=== PATIENT | female | born 1980 | race Two or more races ===

== ENCOUNTER 2016-12-06 13:21 | Emergency (ER) | payer SELFPAY ==
--- NOTE | 2016-12-06 13:56 | ED Physician Documentation ---
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 She denies suicidal or homicidal ideation. She does not have a local doctor yet.) Review of Systems Musculoskeletal: denies: Neck pain, Back pain Psychiatric: reports: Depressed. denies: Suicidal, Homicidal, Hallucinations, Delusions Endocrine: denies: Weight loss, Weight gain PD PAST MEDICAL HISTORY - Past Medical History Past Medical History: Yes Psych: Depression - Past Surgical History Past Surgical History: No - Present Medications Home Medications: Ambulatory Orders Medication Instructions Recorded Confirmed Sertraline HCl 50 mg PO DAILY 12/06/16 12/06/16 Sertraline HCl 50 mg PO DAILY #60 tablet 12/06/16 - Allergies Allergies/Adverse Reactions: Allergies Allergy/AdvReac Type Severity Reaction Status Date / Time No Known Drug Allergies Allergy Verified 12/06/16 13:36 - Social History Does the pt smoke?: No Smoking Status: Never smoker Does the pt drink ETOH?: No Does the pt have substance abuse?: No PD ED PE NORMAL - Vitals Vital signs reviewed: Yes - General General: Alert and oriented X 3, No acute distress - Derm Derm: Normal color, Warm and dry, No rash - Neuro Neuro: Alert and oriented X 3, tape transferrer 2-12 intact, Normal speech - Psych Psych: Normal mood, Normal affect Results - Vitals Vitals: Vital Signs - 24 hr 12/06/16 13:38 Temperature 36.4 C L Heart Rate 83 Respiratory 16 Rate Blood Pressure 105/65 O2 Saturation 97 Oxygen O2 Source Room air Departure - Departure Disposition: 01 Home, Self Care Clinical Impression: Medication refill Depressed Qualifiers: Depression Type: major depressive disorder Major depression recurrence: recurrent Active/Remission status: currently active Major depression episode severity: moderate Qualified Code(s): F33.1 - Major depressive disorder, recurrent, moderate Condition: Good Record reviewed to determine appropriate education?: Yes Instructions: ED Depression Follow-Up: [facility] [Provider Group] Prescriptions: Sertraline HCl 50 mg PO DAILY #60 tablet
[2016-12-06 14:23] VITALS: BP 108/65
== END 2016-12-06 14:20 | disposition home or self-care (01) ==
LOC: ED 13:21
DX: F33.1 Major depressive disorder, recurrent, moderate (principal); Z76.0 Encounter for issue of repeat prescription
CPT/HCPCS: 99283

== ENCOUNTER 2017-01-18 13:15 | Outpatient (CLI) | payer SELFPAY ==
[2017-01-18 19:29] LABS: BASOPHILS % (AUTO) 0.5 %; EOSINOPHILS # (AUTO) 0.1 10^3/uL (0.0-0.7); EOSINOPHILS % (AUTO) 1.8 %; HCT - HEMATOCRIT 37.3 % (37.0-47.0); HGB - HEMOGLOBIN 12.4 g/dL (12.0-16.0); LYMPHOCYTES # (AUTO) 2.2 10^3/uL (1.5-3.5); LYMPHOCYTES % (AUTO) 28.1 %; MEAN CORPUSCULAR HEMOGLOBIN 29.9 pg (27.0-31.0); MEAN CORPUSCULAR HGB CONC 33.3 g/dL (32.0-36.0); MEAN CORPUSCULAR VOLUME 89.6 fL (81.0-99.0); MEAN PLATELET VOLUME 9.2 fL (7.9-10.8); MONOCYTES # (AUTO) 0.5 10^3/uL (0.0-1.0); MONOCYTES % (AUTO) 5.9 %; NEUTROPHILS # (AUTO) 5.1 10^3/uL (1.5-6.6); NEUTROPHILS % (AUTO) 63.7 %; RED BLOOD COUNT 4.16 10^6/uL (4.20-5.40); RED CELL DISTRIBUTION WIDTH 13.6 % (12.0-15.0)
[2017-01-18 19:56] LABS: ALBUMIN/GLOBULIN RATIO 1.3 (1.0-2.2); BILIRUBIN,TOTAL 0.3 mg/dL (0.2-1.0); BUN - BLOOD UREA NITROGEN 13 mg/dL (6-20); CALCIUM 9.5 mg/dL (8.5-10.3); CARBON DIOXIDE - CO2 25 mmol/L (21-32); CHLORIDE 105 mmol/L (101-111); CHOL/HDL RATIO 2.4 (<4.4); CHOLESTEROL 183 mg/dL; CREATININE 0.6 mg/dL (0.4-1.0); GFR - MDRD 113 (>89); GLUCOSE 86 mg/dL (70-100); HDL CHOLESTEROL 76 mg/dL; POTASSIUM 3.9 mmol/L (3.5-5.0); SODIUM 138 mmol/L (135-145); TOTAL PROTEIN 7.7 g/dL (6.7-8.2); TRIGLYCERIDES 33 mg/dL
[2017-01-18 20:17] LABS: LDL CHOLESTEROL,DIRECT 100 mg/dL
== END 2017-01-18 13:16 | disposition home or self-care (01) ==
LOC: LAB.N 13:15
PROVIDERS: ATTEND Family Medicine
DX: E66.9 Obesity, unspecified (principal); F33.0 Major depressive disorder, recurrent, mild
CPT/HCPCS: 36415; 80053; 80061; 84443; 85025

== ENCOUNTER 2017-07-18 18:41 | Emergency (ER) | payer SELFPAY ==
[2017-07-18 19:17] VITALS: BP 96/61
--- NOTE | 2017-07-18 21:54 | ED Physician Documentation ---
History of Present Illness - Stated complaint Stated Complaint: LEG PX - Chief complaint Chief Complaint: General - History obtained from History obtained from: Patient (pt is faroese only. translation service used. pt states she has had bilaterl leg and arm pain for the past several weeks. No fevers, no rashes, no specific joint pain just muscle fatigue. she has been taking mortin for the past week.) Review of Systems Constitutional: denies: Fever Throat: denies: Sore throat Cardiac: denies: Chest pain / pressure, Palpitations Respiratory: denies: Dyspnea, Cough GI: denies: Abdominal Pain, Nausea, Diarrhea : denies: Dysuria Skin: denies: Rash, Lesions Musculoskeletal: reports: Other (arm and leg pain bilateral but R>L) Neurologic: denies: Generalized weakness PD PAST MEDICAL HISTORY - Past Medical History Psych: Depression - Past Surgical History Past Surgical History: No - Present Medications Home Medications: Ambulatory Orders Medication Instructions Recorded Confirmed No Known Home Medications [No 07/18/17 07/18/17 Known Home Medications] - Allergies Allergies/Adverse Reactions: Allergies Allergy/AdvReac Type Severity Reaction Status Date / Time No Known Drug Allergies Allergy Verified 07/18/17 19:17 - Social History Does the pt smoke?: No Smoking Status: Never smoker Does the pt drink ETOH?: No Does the pt have substance abuse?: No PD ED PE NORMAL - Vitals Vital signs reviewed: Yes - General General: No acute distress - Cardiac Cardiac: Strong equal pulses (radial and DP) - Respiratory Respiratory: No respiratory distress, Clear bilaterally - Abdomen Abdomen: Soft - Back Back: No CVA TTP, No spinal TTP - Derm Derm: Normal color, No rash - Extremities Extremities: No deformity, No edema, Other (TTP bilateral thighs, hips, and lower legs and upper arms. ) - Psych Psych: Normal mood, Normal affect Results - Vitals Vitals: Vital Signs - 24 hr 07/18/17 19:09 Temperature 36.6 C Heart Rate 68 Respiratory 16 Rate Blood Pressure 96/61 O2 Saturation 99 Oxygen O2 Source Room air PD MEDICAL DECISION MAKING - ED course Complexity details: d/w patient ED course: pt with generalized muscle weakness. no fevers, no rashes. no trauma. we discussed her symptoms. no emergent process found today. will hold on x-rays. she will continue the motrin. she will make contact with a primary care provider for a follow up and for other blood work for inflamitory issues. Departure - Departure Disposition: 01 Home, Self Care Clinical Impression: Myalgia Condition: Good Instructions: ED Muscle Aching Comments: Call your primary care for a follow up. Discharge Date/Time: 07/18/17 22:04
== END 2017-07-18 22:04 | disposition home or self-care (01) ==
LOC: ED 18:41
DX: M79.1 Myalgia (principal)
CPT/HCPCS: 99282; 99283

== ENCOUNTER 2017-08-16 09:47 | Outpatient (CLI) | payer SELFPAY ==
--- NOTE | 2017-08-16 12:25 | XRAY Report ---
TWO VIEW LUMBAR SPINE: 08/16/2017 CLINICAL INDICATION: Back pain. FINDINGS: AP and lateral views of the lumbar spine demonstrate normal height and alignment of the vertebral bodies. The disk spaces are preserved. There is no evidence of fracture or subluxation. The bowel gas pattern is normal. IMPRESSION: NORMAL LUMBAR SPINE. TD: 08/16/2017 12:24
== END 2017-08-16 09:48 | disposition home or self-care (01) ==
LOC: DI.N 09:47
PROVIDERS: ATTEND Family Medicine
DX: M54.5 Low back pain (principal)
CPT/HCPCS: 72100

== ENCOUNTER 2017-08-17 11:50 | Emergency (ER) | payer OTHER ==
[2017-08-17 12:00] VITALS: BP 177/57
[2017-08-17] MEDS ORDERED: HYDROcod/ACETAM 5/325 MG TABLET PO STA (12:15)
--- NOTE | 2017-08-17 12:17 | ED Physician Documentation ---
History of Present Illness - Stated complaint Stated Complaint: R ARM INJ/GLF - Chief complaint Chief Complaint: General - History obtained from History obtained from: Patient, Friend - History of Present Illness Timing: Other (Healthy 36-year-old woman with no possibility of , she has had ongoing back pain with pulsating in her left leg, had x-rays negative yesterday of the lumbar spine. 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 She slipped on the Wet floor landing on her back and then rolling onto the right shoulder. She complains of increased pain in the upper back and right shoulder. No head injury or neck injury.) Review of Systems Constitutional: denies: Fever, Chills Cardiac: denies: Chest pain / pressure, Palpitations Respiratory: denies: Dyspnea, Cough GI: denies: Abdominal Pain PD PAST MEDICAL HISTORY - Past Medical History Past Medical History: Yes Psych: Depression - Past Surgical History Past Surgical History: No - Present Medications Home Medications: Ambulatory Orders Medication Instructions Recorded Confirmed HYDROcod/ACETAM 5/325 [Keo 5/325] 1 - 2 ea PO Q6H PRN #15 tablet 08/17/17 - Allergies Allergies/Adverse Reactions: Allergies Allergy/AdvReac Type Severity Reaction Status Date / Time No Known Drug Allergies Allergy Verified 07/18/17 19:17 - Social History Does the pt smoke?: No Smoking Status: Never smoker Does the pt drink ETOH?: No Does the pt have substance abuse?: No PD ED PE NORMAL - Vitals Vital signs reviewed: Yes - General General: Alert and oriented X 3, No acute distress - HEENT HEENT: PERRL, EOMI - Neck Neck: Supple, no meningeal sign, No bony TTP - Abdomen Abdomen: Non tender - Back Back: Other (She does have some tenderness of the mid upper T-spine, no tenderness of the cervical or lumbar spine.) - Extremities Extremities: Other (Good range of motion of both shoulders, elbows, wrists with good cartography teacher strength bilaterally. She walks and bears weight without issue and has equal patellar and Babinski reflexes bilaterally.) - Neuro Neuro: Alert and oriented X 3, Normal speech - Psych Psych: Normal mood, Normal affect Results - Vitals Vitals: Vital Signs - 24 hr 08/17/17 11:56 Temperature 35.8 C L Heart Rate 67 Respiratory 19 Rate Blood Pressure 177/57 H O2 Saturation 100 Oxygen O2 Source Room air - Rads (name of study) T spine Radiology: EMP read contemporaneously (no fracture, mild dextroscoliosis) PD MEDICAL DECISION MAKING - ED course ED course: Ground-level fall on wet floor at work. No obvious injuries, moving around well , seems mostly muscular. The site of bony tenderness is in the mid thoracic spine x-rays there are negative. Departure - Departure Disposition: 01 Home, Self Care Clinical Impression: Fall from ground level Thoracic back sprain Qualifiers: Encounter type: initial encounter Qualified Code(s): S23.9XXA - Sprain of unspecified parts of thorax, initial encounter Condition: Good Record reviewed to determine appropriate education?: Yes Instructions: ED Neck Back Pain General Prescriptions: HYDROcod/ACETAM 5/325 [Keo 5/325] 1 - 2 ea PO Q6H PRN #15 tablet PRN Reason: Pain Print Language: Romanian Comments: Lupillo tesfaye guy para beata a bangura mdico en 1 semana. Regresa si aqu si es peor. No kirill ni conduzca mientras mary medicamentos narcticos para el dolor. Tenga en cuenta que muchos analgsicos narcticos tambin contienen Tylenol / acetaminophen. Asegrese de que bangura dosis total de acetaminofn de todas las corea no exceda los 3 g (3000 mg) por da. Puede estreirse mientras mary jewels medicamento. [place] un ablandador de heces lisa Colace dos veces al da mientras est en l. Tambin agregue un laxante de venta mak lisa senna o MiraLAX en cualquier da en que no tenga evacuaciones intestinales. Si recibi un medicamento narctico para el dolor o sedante mientras est en el departamento de emergencias, no conduzca narda las prximas 24 horas. Bangura presi n arterial se elev hoy al ingresar al departamento de emergencias. [place] no significa que tenga hipertensin, es un fenmeno comn acudir al servicio de urgencias y tener presin arterial elevada. Le recomiendo que consulte a bangura m dico de atencin primaria dentro de la semana para que se vuelva a revisar cuando se sienta mejor. Forms: Activity restrictions
--- NOTE | 2017-08-17 12:43 | XRAY Report ---
EXAM: THORACIC SPINE RADIOGRAPHY EXAM DATE: 08/17/2017 12:37 PM. CLINICAL HISTORY: Back pain status post fall COMPARISON: None. TECHNIQUE: 2 views. FINDINGS: Alignment: Mild dextroscoliosis of the mid lower thoracic spine. No spondylolisthesis. Bones: No fractures or bone lesions. Disks: Mild disk space narrowing in the midthoracic spine. Soft Tissues: No paravertebral widening. The visualized lungs and cardiomediastinal silhouette are no rmal. IMPRESSION: 1. No acute thoracic spine abnormalities are identified. 2. Dextroscoliosis of the mid-lower thoracic spine. [facility] Referring Provider Line: [phone] SITE ID: [id number]
== END 2017-08-17 13:05 | disposition home or self-care (01) ==
LOC: ED 11:50
DX: S23.9XXA Sprain of unspecified parts of thorax, initial encounter (principal); W01.0XXA Fall on same level from slipping, tripping and stumbling without subsequent striking against object, initial encounter; Y92.59 Other trade areas as the place of occurrence of the external cause; Y99.0 Civilian activity done for income or pay
CPT/HCPCS: 1040M; 72070; 99283; A9270

== ENCOUNTER 2017-08-23 09:31 | Emergency (ER) | payer OTHER ==
[2017-08-23 09:52] VITALS: BP 106/69
--- NOTE | 2017-08-23 11:54 | ED Physician Documentation ---
PD HPI LOWER EXT INJURY - Stated complaint Stated Complaint: KNEE PX - Chief complaint Chief Complaint: Ext Problem - History obtained from History obtained from: Patient, Other (Dominic Middleton [id number]) - History of Present Illness Type of injury: Other (She fell at work a little over a week ago injuring her back. She was seen here and had x-rays done without acute trauma, only dextroscoliosis. She has noted more knee pain bilaterally, right greater than left since then there is no possibility of . She has been taking a muscle relaxer but it is too strong. She has an appointment with her doctor at [facility] today) Review of Systems Constitutional: reports: Reviewed and negative Ears: reports: Reviewed and negative Cardiac: reports: Reviewed and negative Respiratory: reports: Reviewed and negative PD PAST MEDICAL HISTORY - Past Medical History Psych: Depression - Past Surgical History Past Surgical History: No - Present Medications Home Medications: Ambulatory Orders Medication Instructions Recorded Confirmed HYDROcod/ACETAM 5/325 [[place] 5/325] 1 - 2 ea PO Q6H PRN #15 tablet 08/17/17 Meloxicam [Mobic] 7.5 mg PO BIDWM PRN #15 tablet 08/23/17 - Allergies Allergies/Adverse Reactions: Allergies Allergy/AdvReac Type Severity Reaction Status Date / Time No Known Drug Allergies Allergy Verified 07/18/17 19:17 - Social History Does the pt smoke?: No Smoking Status: Never smoker Does the pt drink ETOH?: No Does the pt have substance abuse?: No PD ED PE NORMAL - Vitals Vital signs reviewed: Yes - General General: Alert and oriented X 3, No acute distress - Neck Neck: Supple, no meningeal sign, No bony TTP - Back Back: No CVA TTP, No spinal TTP - Extremities Extremities: Other (There is a bruise on the anterior upper right velásquez, but nontender, she has pain with internal and external rotation of the right knee but not the hip so much. There is no effusion on either side.) - Neuro Neuro: Alert and oriented X 3, Normal speech - Psych Psych: Normal mood, Normal affect Results - Vitals Vitals: Vital Signs - 24 hr 08/23/17 09:44 Temperature 36.6 C Heart Rate 69 Respiratory 17 Rate Blood Pressure 106/69 O2 Saturation 98 Oxygen O2 Source Room air - Rads (name of study) 4v B knees Radiology: EMP read contemporaneously (Normal) Departure - Departure Disposition: 01 Home, Self Care Clinical Impression: Left knee sprain Qualifiers: Encounter type: initial encounter Involved ligament of knee: unspecified ligament Qualified Code(s): S83.92XA - Sprain of unspecified site of left knee, initial encounter Right knee sprain Qualifiers: Encounter type: initial encounter Involved ligament of knee: unspecified ligament Qualified Code(s): S83.91XA - Sprain of unspecified site of right knee , initial encounter Condition: Good Record reviewed to determine appropriate education?: Yes Instructions: ED Sprain Knee Prescriptions: Meloxicam [Mobic] 7.5 mg PO BIDWM PRN #15 tablet PRN Reason: Pain Comments: Los samuel X en ambas rodillas son normales. Lupillo un seguimiento con bangura mdico en 1 hora segn lo programado. Discuta potencialmente tesfaye referencia para fisioterapia.
--- NOTE | 2017-08-23 12:36 | XRAY Report ---
EXAMS: 1. Right Knee Radiography 2. Left Knee Radiography EXAM DATE:08/23/2017 12:13 PM. CLINICAL HISTORY:L4 days ago onto both knees. Both knees give out while bearing weight. Knee pain. COMPARISON: None. TECHNIQUE: 4 views each. FINDINGS: Right Knee: Bones: Normal. No fractures or bone lesions. Joints: Normal. No effusion. No subluxations. Soft Tissues: Normal. No soft tissue swelling. Left Knee: Bones: Normal. No fractures or bone lesions. Joints: Normal. No effusion. No subluxations. Soft Tissues: Normal. No soft tissue swelling. IMPRESSION: No acute bony abnormality of the bilateral knees. [facility] Referring Provider Line: [phone] SITE ID: [id number]
== END 2017-08-23 12:55 | disposition home or self-care (01) ==
LOC: ED 09:31
DX: S83.92XA Sprain of unspecified site of left knee, initial encounter (principal); S83.91XA Sprain of unspecified site of right knee, initial encounter; W19.XXXA Unspecified fall, initial encounter; Y99.0 Civilian activity done for income or pay
CPT/HCPCS: 99283

== ENCOUNTER 2017-12-27 21:10 | Emergency (ER) | payer SELFPAY ==
--- NOTE | 2017-12-27 21:32 | ED Physician Documentation ---
PD HPI SKIN - Stated complaint Stated Complaint: LT FOOT FUNGUS - Chief complaint Chief Complaint: Ext Problem - History obtained from History obtained from: Patient - History of Present Illness Timing - onset: How many days ago (4) Timing - details: Gradual onset, Still present Pain level now: 5 Location: LLE Quality / character: Painful, Crusted, Swelling Associated symptoms: No: Fever Similar symptoms before: Has not had sx before Recently seen: Not recently seen - Additional information Additional information: 5 days ago, cut toenail on left great toe closer than usual. starting four days ago, she has had gradually increasing pain, redness, swelling of left great toe , lateral aspect Review of Systems Constitutional: denies: Fever Musculoskeletal: reports: Extremity pain, Pain with weight bearing PD PAST MEDICAL HISTORY - Past Medical History Past Medical History: No Psych: Depression - Past Surgical History Past Surgical History: No - Present Medications Home Medications: Ambulatory Orders Medication Instructions Recorded Confirmed Clindamycin HCl [Cleocin HCl] 300 mg PO QID #27 capsule 12/27/17 - Allergies Allergies/Adverse Reactions: Allergies Allergy/AdvReac Type Severity Reaction Status Date / Time No Known Drug Allergies Allergy Verified 12/27/17 21:28 - Social History Does the pt smoke?: No Smoking Status: Never smoker Does the pt drink ETOH?: No Does the pt have substance abuse?: No - Immunizations Immunizations are current?: No Immunizations: TDAP >10years/unknown - POLST Patient has POLST: No PD ED PE NORMAL - Vitals Vital signs reviewed: Yes - General General: Alert and oriented X 3, No acute distress, Well developed/nourished - Extremities Extremities: Normal ROM s pain, No edema PD ED PE EXPANDED - Extremities Extremities: Other (erythema, swelling left great toe adjacent to lateral nail fold at distal edge. no fluctuance or discharge) Results - Vitals Vitals: Oxygen O2 Source Room air PD MEDICAL DECISION MAKING - ED course Complexity details: considered differential, d/w patient - Sepsis Event Vital Signs: Oxygen O2 Source Room air Departure - Departure Disposition: 01 Home, Self Care Clinical Impression: Paronychia of great toe, left Condition: Good Instructions: ED Fingernail Infec Follow-Up: Gilberto Verma MD [Primary Care Provider] - (3-4 days if not improving ) Prescriptions: Clindamycin HCl [Cleocin HCl] 300 mg PO QID #27 capsule Print Language: Kiswahili Discharge Date/Time: 12/27/17 22:22
[2017-12-27] MEDS ORDERED: CLINDAMYCIN 150 MG CAPSULE PO STA (21:57)
[2017-12-27] MEDS ORDERED: IBUPROFEN 600 MG TABLET PO STA (21:57)
[2017-12-27 22:25] VITALS: BP 110/80
== END 2017-12-27 22:22 | disposition home or self-care (01) ==
LOC: ED 21:10
DX: L03.032 Cellulitis of left toe (principal)
CPT/HCPCS: 99283; A9270

== ENCOUNTER 2019-04-07 20:45 | Emergency (ER) | payer SELFPAY ==
[2019-04-07 20:55] VITALS: BP 114/70
[2019-04-07] MEDS ORDERED: CLINDAMYCIN 150 MG CAPSULE PO STA (21:09)
[2019-04-07] MEDS ORDERED: HYDROcod/ACET 5/325 Prepack 4 PO STA (21:09)
--- NOTE | 2019-04-07 21:09 | ED Physician Documentation ---
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 She was seen at [facility], prescribed amoxicillin and ibuprofen which has not been helpful. She has 2 appointments coming up for "deep cleaning." But from her perspective there is no specific plan to address the painful tooth in question otherwise. There is no facial swelling, fevers, or possibility of .) Review of Systems Constitutional: reports: Reviewed and negative Nose: reports: Reviewed and negative Cardiac: reports: Reviewed and negative PD PAST MEDICAL HISTORY - Past Medical History Psych: Depression - Past Surgical History Past Surgical History: No - Present Medications Home Medications: Ambulatory Orders Medication Instructions Recorded Confirmed Clindamycin HCl [Cleocin HCl] 300 mg PO QID #27 capsule 12/27/17 Clindamycin HCl [Clindamycin 300MG 300 mg PO Q6H #40 capsule 04/07/19 CAP] Hydrocodone/Acetaminophen 1 - 2 each PO Q6H PRN #14 tablet 04/07/19 [Hydrocodon-Acetaminophen 5-325] - Allergies Allergies/Adverse Reactions: Allergies Allergy/AdvReac Type Severity Reaction Status Date / Time No Known Drug Allergies Allergy Verified 04/07/19 20:55 - Social History Does the pt smoke?: No Smoking Status: Never smoker Does the pt drink ETOH?: No Does the pt have substance abuse?: No - Immunizations Immunizations are current?: No Immunizations: TDAP >10years/unknown - POLST Patient has POLST: No PD ED PE NORMAL - Vitals Vital signs reviewed: Yes - General General: Alert and oriented X 3, No acute distress - HEENT HEENT: PERRL, EOMI, Other (There is a large posterior cavity on a right mandibular premolar that is tender but without facial swelling, trismus, or sublingual edema.) - Neck Neck: Supple, no meningeal sign, No bony TTP Results - Vitals Vitals: Vital Signs - 24 hr 04/07/19 20:52 Temperature 36.8 C Heart Rate 59 L Respiratory 15 Rate Blood Pressure 114/70 O2 Saturation 99 Oxygen O2 Source Room air Departure - Departure Disposition: 01 Home, Self Care Clinical Impression: Pain due to dental caries Condition: Good Record reviewed to determine appropriate education?: Yes Instructions: ED Tooth Pain Prescriptions: Clindamycin HCl [Clindamycin 300MG CAP] 300 mg PO Q6H #40 capsule Hydrocodone/Acetaminophen [Hydrocodon-Acetaminophen 5-325] 1 - 2 each PO Q6H PRN #14 tablet PRN Reason: pain Print Language: Polish Comments: Deberas volver al dentista. Llmalos maana. Necesitar ms que tesfaye limpieza en shawanda dientes para solucionar el problema. Regrese si empeora. Tenga en cuenta que muchos analgsicos narcticos tambin contienen Tylenol / acetaminofeno. Asegrese de que bang[place] dosis total de acetaminofn de todas las corea no supere los 3 g (3000 mg) por da. Puede estreirse mientras mary jewels medicamento. [place] un ablandador de heces lisa Colace dos veces al da mientras lo usa. Tambin agregue un laxante de venta mak lisa senna o MiraLAX en cualquier da que no tenga evacuaciones intestinales. Si recibi un medicamento narctico para el dolor o un sedante mientras estaba en el departamento de emergencias, no conduzca narda las prximas 24 horas.
== END 2019-04-07 21:20 | disposition home or self-care (01) ==
LOC: ED 20:45
DX: K02.9 Dental caries, unspecified (principal)
CPT/HCPCS: 99282; 99283; A9270

== ENCOUNTER 2019-06-06 19:35 | Emergency (ER) | payer SELFPAY ==
[2019-06-06] MEDS ORDERED: predniSONE 20 MG TABLET PO STA (20:33)
[2019-06-06] MEDS ORDERED: oxyCODONE 5 MG TABLET PO STA (20:33)
--- NOTE | 2019-06-06 20:34 | ED Physician Documentation ---
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 There is no weakness, numbness, or tingling of the legs or saddle area. No bowel or bladder incontinence but she does have very mild dysuria. No fever. She had this a few years ago it was similar, it was sciatica. No recent injury.) Review of Systems Constitutional: denies: Fever, Chills Throat: reports: Reviewed and negative Cardiac: reports: Reviewed and negative Respiratory: reports: Reviewed and negative PD PAST MEDICAL HISTORY - Past Medical History Past Medical History: Yes Psych: Depression - Past Surgical History Past Surgical History: No - Present Medications Home Medications: Ambulatory Orders Medication Instructions Recorded Confirmed Clindamycin HCl [Cleocin HCl] 300 mg PO QID #27 capsule 12/27/17 Clindamycin HCl [Clindamycin 300MG 300 mg PO Q6H #40 capsule 04/07/19 CAP] Hydrocodone/Acetaminophen 1 - 2 each PO Q6H PRN #14 tablet 04/07/19 [Hydrocodon-Acetaminophen 5-325] Oxycodone HCl/Acetaminophen 1 - 2 each PO Q6H PRN #14 tablet 06/06/19 [Percocet 5-325 mg Tablet] predniSONE [Deltasone] 20 mg PO [id number] #21 tab 06/06/19 - Allergies Allergies/Adverse Reactions: Allergies Allergy/AdvReac Type Severity Reaction Status Date / Time No Known Drug Allergies Allergy Verified 06/06/19 19:42 - Social History Does the pt smoke?: No Smoking Status: Never smoker Does the pt drink ETOH?: No Does the pt have substance abuse?: No - Immunizations Immunizations are current?: No Immunizations: TDAP >10years/unknown - POLST Patient has POLST: No PD ED PE NORMAL - Vitals Vital signs reviewed: Yes - General General: Alert and oriented X 3, No acute distress - Abdomen Abdomen: Non tender - Back Back: No CVA TTP, No spinal TTP, Other (Mild tenderness in the right sciatic notch, no midline spinal tenderness) - Extremities Extremities: Other (The patient has equal and normal Achilles and patellar reflexes bilaterally. Normal sensation in all areas of the legs. Patient denies saddle anesthesia. Normal strength in flexion-extension at the ankles, knees, and flexion of the hips.) Results - Vitals Vitals: Vital Signs - 24 hr 06/06/19 19:35 Temperature 36.7 C Heart Rate 78 Respiratory 16 Rate Blood Pressure 142/81 H O2 Saturation 99 Oxygen O2 Source Room air - Labs Labs: Laboratory Tests 06/06/19 20:48 Urine Color YELLOW Urine Clarity HAZY Urine pH 5.5 Ur Specific [place] 1.020 Urine Protein NEGATIVE Urine Glucose (UA) NEGATIVE Urine Ketones NEGATIVE Urine Occult Blood TRACE-INTA Urine Nitrite NEGATIVE Urine Bilirubin NEGATIVE Urine Urobilinogen 0.2 (NORMAL) Ur Leukocyte Esterase TRACE H Urine RBC 0-5 Urine WBC 0-3 Ur Squamous Epith Cells MOD Squamous H Urine Bacteria Rare Ur Microscopic Review INDICATED Urine Culture Comments NOT INDICATED Urine HCG, Qual NEGATIVE Departure - Departure Disposition: 01 Home, Self Care Clinical Impression: Sciatica Qualifiers: Laterality: right Qualified Code(s): M54.31 - Sciatica, right side Condition: Good Record reviewed to determine appropriate education?: Yes Instructions: ED Sciatica Prescriptions: Oxycodone HCl/Acetaminophen [Percocet 5-325 mg Tablet] 1 - 2 each PO Q6H PRN #14 tablet PRN Reason: pain predniSONE [Deltasone] 20 mg PO [id number] #21 tab Print Language: [place] Comments: Llame a bangura mdico para concertar tesfaye guy de seguimiento, tyshawn la prxima guy disponible. Mientras tanto, regrese en cualquier momento si empeora o si se desarrollan nuevos sntomas. No kirill ni maneje mientras mary medicamentos narcticos para el dolor. Tenga en cuenta que muchos analgsicos narcticos tambin contienen Tylenol / acetaminofeno. Asegrese de que bangura dosis total de acetaminofn de todas las corea no supere los 3 g (3000 mg) por da. Puede estreirse mientras mary jewels medicamento. [place] un ablandador de heces lisa Colace dos veces al da mientras lo usa. Tambin agregue un laxante de venta mak lisa senna o MiraLAX en cualquier da que no tenga evacuaciones intestinales. Si recibi un medicamento narctico para el dolor o un sedante mientras estaba en el departamento de emergencias, no conduzca narda las prximas 24 horas.
[2019-06-06 21:04] LABS: BILIRUBIN,URINE NEGATIVE (NEGATIVE); GLUCOSE, URINE (UA) NEGATIVE (NEGATIVE); KETONES,URINE (UA) NEGATIVE (NEGATIVE); LEUKOCYTE ESTERASE, URINE TRACE (NEGATIVE); NITRITE,URINE NEGATIVE (NEGATIVE); OCCULT BLOOD,URINE TRACE-INTA (NEGATIVE); PH,URINE 5.5 PH (5.0-7.5); PROTEIN,URINE NEGATIVE (NEGATIVE); UROBILINOGEN,URINE 0.2 (NORMAL) E.U./dL (NORMAL)
[2019-06-06 21:07] LABS: CLARITY,URINE HAZY (CLEAR); HCG UR QUAL NEGATIVE
[2019-06-06 21:17] LABS: BACTERIA,URINE Rare /HPF (None Seen); RBC,URINE 0-5 /HPF (0-5); SQUAMOUS EPITHELIAL CELL,UR MOD Squamous (<= Few)
[2019-06-06] MEDS ORDERED: oxyCODONE/ACET 5/325 Prepack 4 PO STA (21:24)
[2019-06-06 21:36] VITALS: BP 134/77
== END 2019-06-06 21:36 | disposition home or self-care (01) ==
LOC: ED 19:35
DX: M54.31 Sciatica, right side (principal)
CPT/HCPCS: 81001; 81025; 99283; A9270; J7512; 81003; 87086

== ENCOUNTER 2021-03-30 19:06 | Emergency (ER) | payer MEDICAID ==
[2021-03-30] MEDS ORDERED: diphenhydrAMINE 25 MG CAPSULE PO STA (19:20)
[2021-03-30] MEDS ORDERED: predniSONE 20 MG TABLET PO STA (19:20)
--- NOTE | 2021-03-30 19:32 | ED Physician Documentation ---
History of Present Illness - Stated complaint Stated Complaint: RT ARM SPIDER BITE - Chief complaint Chief Complaint: Wound - History obtained from History obtained from: Patient - History of Present Illness Timing: Today Pain level max: 7 Pain level now: 6 - Additonal information Additional information: R wrist spider bite today, complains of itching, redness to the area. states the spider was black. Has not taken anything for this. Td UTD. nothing makes it better or worse. She has also had swelling to the R wrist for 9 months has been seen in clinic for same. Review of Systems Constitutional: denies: Fever, Chills GI: denies: Vomiting, Diarrhea : denies: Now EGA Skin: denies: Rash Musculoskeletal: denies: Neck pain, Back pain Neurologic: denies: Headache PD PAST MEDICAL HISTORY - Past Medical History Past Medical History: No Psych: Depression - Past Surgical History Past Surgical History: No - Present Medications Home Medications: Ambulatory Orders Medication Instructions Recorded Confirmed Ibuprofen [Motrin] 800 mg PO Q8H PRN #30 tablet 03/30/21 predniSONE [Deltasone] 40 mg PO DAILY #10 tablet 03/30/21 - Allergies Allergies/Adverse Reactions: Allergies Allergy/AdvReac Type Severity Reaction Status Date / Time No Known Drug Allergies Allergy Verified 03/30/21 19:15 - Living Situation Living Situation: reports: With family Living Arrangement: reports: At home - Social History Does the pt smoke?: No Smoking Status: Never smoker Does the pt drink ETOH?: No Does the pt have substance abuse?: No - Immunizations Immunizations are current?: No Immunizations: TDAP >10years/unknown - POLST Patient has POLST: No PD ED PE NORMAL - Vitals Vital signs reviewed: Yes - General General: Alert and oriented X 3, No acute distress, Other (texting with both hands on her phone without difficulty. ) - HEENT HEENT: Moist mucous membranes - Neck Neck: Supple, no meningeal sign - Cardiac Cardiac: RRR - Respiratory Respiratory: No respiratory distress, Clear bilaterally - Derm Derm: Warm and dry - Extremities Extremities: Other (small rash to the volar aspect of the R wrist 2x3cm. there is also a ganglion cyst on the ulnar aspect. ) - Neuro Neuro: Alert and oriented X 3 - Psych Psych: Normal mood, Normal affect Results - Vitals Vitals: Vital Signs - 24 hr 03/30/21 19:09 Temperature 36.8 C Heart Rate 79 Respiratory 18 Rate Blood Pressure 124/77 O2 Saturation 99 Oxygen O2 Source Room air PD MEDICAL DECISION MAKING - ED course Complexity details: reviewed results, re-evaluated patient, considered differential, d/w patient ED course: perianesthesia manager was used for all interactions. The patient appears to be having an allergic reaction, localized to a spider bite. She is using the hand and arm freely. Texting on her cell phone. Given Benadryl, prednisone and Motrin. Symptoms improved. Will place on prednisone for the next few days for home and have her follow-up with her doctor for further care. Patient counseled regarding signs and symptoms for which I believe and urgent re-evaluation would be necessary. Patient with good understanding of and agreement to plan and is comfortable going home at this time This document was made in part using voice recognition software. While efforts are made to proofread this document, sound alike and grammatical errors may occur. Departure - Departure Disposition: 01 Home, Self Care Clinical Impression: Spider bite Qualifiers: Encounter type: initial encounter Injury intent: undetermined intent Qualified Code(s): T63.304A - Toxic effect of unspecified spider venom, undetermined, initial encounter Condition: Good Instructions: ED Cyst Ganglion, ED Bite Spider Non Poisonous Follow-Up: your,doctor in 1 week [Other] Prescriptions: predniSONE [Deltasone] 40 mg PO DAILY #10 tablet Ibuprofen [Motrin] 800 mg PO Q8H PRN #30 tablet PRN Reason: PAIN &/OR FEVER Print Language: [place]ian Comments: You can use ice on the area as well. Please follow-up with your doctor for further care. Return if you worsen. This should improve over the next 24 hours.
[2021-03-30] MEDS ORDERED: IBUPROFEN 800 MG TABLET PO STA (20:20)
[2021-03-30 20:58] VITALS: BP 122/70
== END 2021-03-30 20:58 | disposition home or self-care (01) ==
LOC: ED 19:06
DX: T63.301A Toxic effect of unspecified spider venom, accidental (unintentional), initial encounter (principal); L25.8 Unspecified contact dermatitis due to other agents; Y92.009 Unspecified place in unspecified non-institutional (private) residence as the place of occurrence of the external cause; M67.431 Ganglion, right wrist
CPT/HCPCS: 99282; 99283; A9270; J7512

== ENCOUNTER 2021-11-13 18:39 | Emergency (ER) | payer MEDICAID ==
[2021-11-13 18:58] VITALS: BP 107/67
[2021-11-13] MEDS ORDERED: FUROSEMIDE 20 MG TABLET PO STA (19:40)
--- NOTE | 2021-11-13 19:44 | ED Physician Documentation ---
History of Present Illness - Stated complaint Stated Complaint: LEG SWELLING - Chief complaint Chief Complaint: Ext Problem - History obtained from History obtained from: Patient - History of Present Illness Timing: How many days ago (4-5) Pain level max: 5 Pain level now: 5 - Additonal information Additional information: The encounter was performed through the sign language interpreter. 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 She complains of bilateral lower extremity swelling. Worse at the end of the day, better in the morning and at night after she lies down. She wears ankle socks. No chest pain. No shortness of breath. No abdominal pain. No redness. No fevers. No trauma. Review of Systems Constitutional: denies: Fever, Chills Cardiac: denies: Chest pain / pressure, Palpitations Respiratory: denies: Dyspnea, Cough, Wheezing GI: denies: Vomiting, Diarrhea PD PAST MEDICAL HISTORY - Past Medical History Past Medical History: Yes Psych: Depression - Past Surgical History Past Surgical History: Yes Ortho: Carpal Tunnel surgery - Present Medications Home Medications: Ambulatory Orders Medication Instructions Recorded Confirmed Furosemide [Lasix] 20 mg PO DAILY #5 tablet 11/13/21 - Allergies Allergies/Adverse Reactions: Allergies Allergy/AdvReac Type Severity Reaction Status Date / Time No Known Drug Allergies Allergy Verified 11/13/21 19:04 - Social History Does the pt smoke?: No Smoking Status: Never smoker Does the pt drink ETOH?: No Does the pt have substance abuse?: No - Immunizations Immunizations are current?: Yes Immunizations: TDAP >10years/unknown - POLST Patient has POLST: No PD ED PE NORMAL - Vitals Vital signs reviewed: Yes - General General: Alert and oriented X 3, No acute distress, Well developed/nourished - HEENT HEENT: PERRL, Moist mucous membranes - Neck Neck: Supple, no meningeal sign - Cardiac Cardiac: RRR, Strong equal pulses - Respiratory Respiratory: No respiratory distress, Clear bilaterally - Abdomen Abdomen: Soft, Non tender, Non distended - Derm Derm: Warm and dry - Extremities Extremities: No calf tenderness / cord, Other (1+ bilateral lower extremity ed caden.) - Neuro Neuro: Alert and oriented X 3 - Psych Psych: Normal mood, Normal affect Results - Vitals Vitals: Vital Signs - 24 hr 11/13/21 18:53 Temperature 36.7 C Heart Rate 83 Respiratory 18 Rate Blood Pressure 107/67 O2 Saturation 99 Oxygen O2 Source Room air PD MEDICAL DECISION MAKING - ED course Complexity details: reviewed results, re-evaluated patient, considered differential, d/w patient ED course: Patient appears to have dependent edema, likely from working long hours on her feet. We gave the patient compression socks. Will place on a short course of Lasix. Recommend that she elevate her legs whenever possible and wear compression socks at work. No evidence of heart failure or liver disease. Patient counseled regarding signs and symptoms for which I believe and urgent re-evaluation would be necessary. Patient with good understanding of and agreement to plan and is comfortable going home at this time This document was made in part using voice recognition software. While efforts are made to proofread this document, sound alike and grammatical errors may occur. No evidence of DVT Departure - Departure Disposition: 01 Home, Self Care Clinical Impression: Peripheral edema Condition: Good Instructions: ED Edema Legs Bilateral Follow-Up: your,doctor in 1 week [Other] Prescriptions: Furosemide [Lasix] 20 mg PO DAILY #5 tablet Comments: Use the lasix as prescribed, this should help the swelling. compression socks will help as well. Elevate your legs at the end of the day. Return if you worsen. Your prescriptions were sent to [facility] in [place]. Discharge Date/Time: 11/13/21 19:53
== END 2021-11-13 19:53 | disposition home or self-care (01) ==
LOC: ED 18:39
DX: R60.9 Edema, unspecified (principal)
CPT/HCPCS: 99282; A9270

== ENCOUNTER 2021-12-08 20:38 | Emergency (ER) | payer MEDICAID ==
[2021-12-08 21:14] LABS: BASOPHILS # (AUTO) 0.1 10^3/uL (0.0-0.1); BASOPHILS % (AUTO) 0.7 %; EOSINOPHILS # (AUTO) 0.2 10^3/uL (0.0-0.7); EOSINOPHILS % (AUTO) 2.6 %; HCT - HEMATOCRIT 36.7 % (37.0-47.0); HGB - HEMOGLOBIN 11.6 g/dL (12.0-16.0); LYMPHOCYTES # (AUTO) 2.4 10^3/uL (1.5-3.5); LYMPHOCYTES % (AUTO) 28.5 %; MEAN CORPUSCULAR HEMOGLOBIN 29.8 pg (27.0-31.0); MEAN CORPUSCULAR HGB CONC 31.6 g/dL (32.0-36.0); MEAN CORPUSCULAR VOLUME 94.3 fL (81.0-99.0); MEAN PLATELET VOLUME 10.1 fL (7.9-10.8); MONOCYTES # (AUTO) 0.6 10^3/uL (0.0-1.0); MONOCYTES % (AUTO) 6.6 %; NEUTROPHILS # (AUTO) 5.1 10^3/uL (1.5-6.6); NEUTROPHILS % (AUTO) 61.1 %; PLT - PLATELET COUNT 215 10^3/uL (130-450); RED BLOOD COUNT 3.89 10^6/uL (4.20-5.40); RED CELL DISTRIBUTION WIDTH 12.3 % (12.0-15.0); WHITE BLOOD COUNT 8.4 x10^3/uL (4.8-10.8)
[2021-12-08 21:27] LABS: ALBUMIN 4.1 g/dL (3.2-5.5); ALBUMIN/GLOBULIN RATIO 1.2 (1.0-2.2); BILIRUBIN,TOTAL 0.5 mg/dL (0.2-1.0); CALCIUM 9.1 mg/dL (8.5-10.3); CREATININE 0.8 mg/dL (0.4-1.0); POTASSIUM 3.3 mmol/L (3.5-5.0); TOTAL PROTEIN 7.5 g/dL (6.7-8.2)
--- NOTE | 2021-12-08 22:22 | ED Physician Documentation ---
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 No: Fall, Twist Timing - onset: How many weeks ago (onset about 4 weeks ago and was seen in ER 11/07/21, with dx of likely dependent edema. Rx with Lasix for few days and compressive socks, which she is wearing during workdays. However, is still having swelling of both lower legs, right more, despite those. Having cramps right calf as well.) Timing - duration: Weeks Timing - details: Gradual onset, Still present Worsened by: Other (walking). No: Palpating Associated symptoms: Swelling. No: Weakness, Numbness, Discolored Similar symptoms before: No diagnosis (presumed dependent edema from prolonged standing at work.) Recently seen: Emergency Dept Review of Systems Constitutional: denies: Fever, Chills Nose: denies: Rhinorrhea / runny nose, Congestion Throat: denies: Sore throat Cardiac: denies: Chest pain / pressure, Palpitations Respiratory: denies: Dyspnea, Cough GI: denies: Nausea, Vomiting, Diarrhea, Bloody / black stool Musculoskeletal: denies: Back pain Neurologic: denies: Focal weakness, Numbness PD PAST MEDICAL HISTORY - Past Medical History Cardiovascular: None Respiratory: None Endocrine/Autoimmune: None GI: None Psych: Depression - Past Surgical History Past Surgical History: Yes Ortho: Carpal Tunnel surgery - Present Medications Home Medications: Ambulatory Orders Medication Instructions Recorded Confirmed Furosemide [Lasix] 20 mg PO DAILY #5 tablet 11/13/21 HYDROcod/ACETAM 5/325 [[place] 5/325] 1 ea PO Q6H PRN #15 tablet 12/08/21 Meloxicam [Mobic] 7.5 mg PO BID 10 Days #20 tablet 12/08/21 hydroCHLOROthiazide [Hydrodiuril] 25 mg PO DAILY #15 tablet 12/08/21 - Allergies Allergies/Adverse Reactions: Allergies Allergy/AdvReac Type Severity Reaction Status Date / Time No Known Drug Allergies Allergy Verified 11/13/21 19:04 - Social History Does the pt smoke?: No Smoking Status: Never smoker Does the pt drink ETOH?: No Does the pt have substance abuse?: No - Immunizations Immunizations are current?: Yes Immunizations: TDAP >10years/unknown - POLST Patient has POLST: No PD ED PE NORMAL - Vitals Vital signs reviewed: Yes - General General: Alert and oriented X 3, No acute distress, Well developed/nourished - Neck Neck: Supple, no meningeal sign, No adenopathy - Cardiac Cardiac: RRR, No murmur - Respiratory Respiratory: No respiratory distress, Clear bilaterally - Abdomen Abdomen: Soft, Non tender - Derm Derm: Normal color, Warm and dry - Extremities Extremities: Normal ROM s pain, Other (There is mild tenderness in the upper calf and popliteal area on the right. Mild edema in the lower extremity down to the ankle. This is 1+ pitting. Minimal edema in the left ankle. No rash or redness.) Results - Vitals Vitals: Oxygen O2 Source Room air - Labs Labs: Laboratory Tests 12/08/21 12/08/21 12/08/21 21:08 21:08 21:08 WBC 8.4 RBC 3.89 L Hgb 11.6 L Hct 36.7 L MCV 94.3 MCH 29.8 MCHC 31.6 L RDW 12.3 Plt Count 215 MPV 10.1 Neut # (Auto) 5.1 Lymph # (Auto) 2.4 Piatt # (Auto) 0.6 Eos # (Auto) 0.2 Baso # (Auto) 0.1 Absolute Nucleated RBC 0.00 Nucleated RBC % 0.0 Sodium 138 Potassium 3.3 L Chloride 103 Carbon Dioxide 26 Anion Gap 9.0 BUN 17 Creatinine 0.8 Estimated GFR (MDRD) 79 L Glucose 113 H Calcium 9.1 Total Bilirubin 0.5 AST 19 ALT 22 Alkaline Phosphatase 52 B-Natriuretic Peptide 15 Total Protein 7.5 Albumin 4.1 Globulin 3.4 Albumin/Globulin Ratio 1.2 Lipase 45 - Rads (name of study) duplex right leg Radiology: Prelim report reviewed (no DVT), See rad report PD MEDICAL DECISION MAKING - ED course Complexity details: reviewed old records (prior ER visit), reviewed results, re- evaluated patient, considered differential (consider DVT, heart failure, inflammatory process (FM or RA, etc), or just dependent edema as previously thought. ), d/w patient Departure - Departure Disposition: Home, Self Care Clinical Impression: Pain and swelling of lower leg Qualifiers: Laterality: unspecified laterality Qualified Code(s): M79.669 - Pain in unspecified lower leg Condition: Stable Record reviewed to determine appropriate education?: Yes Instructions: ED Muscle Pain Leg Cramps Follow-Up: [facility] [Provider Group] [facility] [place] [Provider Group] Prescriptions: hydroCHLOROthiazide [Hydrodiuril] 25 mg PO DAILY #15 tablet Meloxicam [Mobic] 7.5 mg PO BID 10 Days #20 tablet HYDROcod/ACETAM 5/325 [[place] 5/325] 1 ea PO Q6H PRN #15 tablet PRN Reason: Pain Comments: Your basic blood tests are good without any signs of diabetes, autoimmune process, kidney failure, electrolyte problems. Your ultrasound is also normal without any signs of blood clots. At this point is not clear the cause of your symptoms. It may still be related to just use and inflammation of the muscles and swelling in the legs that can be treated with anti-inflammatories and we can also try a different water pill/diuretic. To that add Tylenol or hydrocodone every 6 hours if needed for pains, in particular at night for bed etc. I transmitted your prescriptions to [facility] pharmacy in [place]. Follow-up with your primary care in the next week or so if not improving with the above medications. I provided a couple of clinic names in [place] if you do not have a primary care at this point. Call and see if they have are taking new patients. I am prescribing a short course of narcotic pain medication for you. These are potentially dangerous and addictive medications that should be used carefully. These medications may constipate you. Take an [id number]-[id number] stool softener such as docusate twice daily with plenty of water while taking these medications. If you go 24 hours without a bowel movement, take [id number] MiraLAX, per package instructions. Do not drink or drive while taking these medications. If you received narcotic or sedating medications while in the emergency department do not drive for 24 hours. Store this medication in a safe, secure place and out of reach of children. It is a violation of federal law to give or sell this medication to another person or to use in a manner other than prescribed. The ED will not refill narcotic prescriptions, including prescriptions lost or stolen. You can dispose of unwanted medications at the [facility] office or at several pharmacies such as [facility]. Discharge Date/Time: 12/08/21 23:54
[2021-12-08] MEDS ORDERED: KETOROLAC 30 MG/ML VIAL IM STA (22:34)
[2021-12-08] MEDS ORDERED: ACETAMINOPHEN 325 MG TABLET PO STA (22:34)
--- NOTE | 2021-12-08 23:53 | Ultrasound Report ---
PROCEDURE: Duplex Ext Veins Right INDICATIONS: right leg pain and swelling for 3 weeks. TECHNIQUE: Real-time imaging, as well as color and pulse Doppler interrogation, were performed of the lower extr emity deep veins from the inguinal ligament to the popliteal fossa. COMPARISON: None. FINDINGS: The deep veins are normally compressible, and free of intraluminal thrombus. Color and pu lse Doppler demonstrate normal phasic intraluminal flow. There is normal augmentation response to di stal compression maneuver. IMPRESSION: 1. No evidence of deep venous thrombosis in the right lower extremity. Reviewed by: Manny Kuhn MD on 12/08/2021 11:56 PM PDT Approved by: Manny Kuhn MD on 12/08/2021 11:56 PM PDT Station ID: [id number]
[2021-12-08 23:56] VITALS: BP 113/71
== END 2021-12-08 23:54 | disposition home or self-care (01) ==
LOC: ED 20:38
DX: R22.43 Localized swelling, mass and lump, lower limb, bilateral (principal)
CPT/HCPCS: 36415; 80053; 83690; 83880; 85025; 93971; 96372; 99284; A9270

== ENCOUNTER 2021-12-16 19:54 | Emergency (ER) | payer MEDICAID ==
[2021-12-16 20:40] LABS: BASOPHILS % (AUTO) 0.4 %; EOSINOPHILS # (AUTO) 0.1 10^3/uL (0.0-0.7); EOSINOPHILS % (AUTO) 1.9 %; HCT - HEMATOCRIT 33.5 % (37.0-47.0); HGB - HEMOGLOBIN 11.1 g/dL (12.0-16.0); LYMPHOCYTES # (AUTO) 1.8 10^3/uL (1.5-3.5); LYMPHOCYTES % (AUTO) 24.1 %; MEAN CORPUSCULAR HEMOGLOBIN 30.5 pg (27.0-31.0); MEAN CORPUSCULAR HGB CONC 33.1 g/dL (32.0-36.0); MEAN PLATELET VOLUME 9.9 fL (7.9-10.8); MONOCYTES # (AUTO) 0.5 10^3/uL (0.0-1.0); MONOCYTES % (AUTO) 6.6 %; NEUTROPHILS # (AUTO) 4.9 10^3/uL (1.5-6.6); NEUTROPHILS % (AUTO) 66.6 %; PLT - PLATELET COUNT 186 10^3/uL (130-450); RED BLOOD COUNT 3.64 10^6/uL (4.20-5.40); WHITE BLOOD COUNT 7.3 x10^3/uL (4.8-10.8)
--- NOTE | 2021-12-16 20:45 | ED Physician Documentation ---
History of Present Illness - Stated complaint Stated Complaint: RETAINING FLUID - Chief complaint Chief Complaint: Ext Problem - History obtained from History obtained from: Patient - History of Present Illness Timing: Other (4-5 weeks) Improved by: no ameliorating factors Worsened by: no exacerbating factors - Additonal information Additional information: c/o 4-5 weeks of BLE swelling. She was T+R from this ED 11/13 for these symptoms and prescribed lasix and advised to wear compression stockings. She returned to this ED 12/08 for same, ongoing symptoms; blood tests (CBC, ER abdominal panel, BNP) without concerning nor diagnostic results. She also had RLE US on 12/08 ED visit that was negative for DVT. She was prescribed HCTZ, mobic, and norco for BLE pain. She returns to ED at this time for ongoing BLE swelling and pain. Review of Systems Constitutional: denies: Fever Cardiac: reports: Reviewed and negative Respiratory: reports: Reviewed and negative GI: reports: Reviewed and negative Musculoskeletal: reports: Extremity pain, Extremity swelling PD PAST MEDICAL HISTORY - Past Medical History Cardiovascular: None Respiratory: None Endocrine/Autoimmune: None GI: None Psych: Depression - Past Surgical History Past Surgical History: Yes Ortho: Carpal Tunnel surgery - Present Medications Home Medications: Ambulatory Orders Medication Instructions Recorded Confirmed HYDROcod/ACETAM 5/325 [[place] 5/325] 1 ea PO Q6H PRN #15 tablet 12/08/21 12/16/21 Meloxicam [Mobic] 7.5 mg PO BID 10 Days #20 tablet 12/08/21 12/16/21 hydroCHLOROthiazide [Hydrodiuril] 25 mg PO DAILY #15 tablet 12/08/21 12/16/21 HYDROcod/ACETAM 5/325 [[place] 5/325] 1 - 2 tablet PO Q6H PRN #14 tablet 12/16/21 Potassium Chloride [K-Dur] 20 meq PO BIDWM #20 tablet 12/16/21 hydroCHLOROthiazide [Hydrodiuril] 25 mg PO DAILY #20 tablet 12/16/21 - Allergies Allergies/Adverse Reactions: Allergies Allergy/AdvReac Type Severity Reaction Status Date / Time No Known Drug Allergies Allergy Verified 12/16/21 20:04 - Social History Does the pt smoke?: No Smoking Status: Never smoker Does the pt drink ETOH?: No Does the pt have substance abuse?: No - Immunizations Immunizations are current?: Yes Immunizations: TDAP >10years/unknown - POLST Patient has POLST: No PD ED PE NORMAL - Vitals Vital signs reviewed: Yes - General General: Alert and oriented X 3, No acute distress, Well developed/nourished - Cardiac Cardiac: RRR, No murmur - Respiratory Respiratory: No respiratory distress, Clear bilaterally PD ED PE EXPANDED - Extremities Extremities: Pedal edema bilateral, Pedal Pulses Present, Sensory intact, Vascular intact Results - Vitals Vitals: Oxygen O2 Source Room air - Labs Labs: Laboratory Tests 12/16/21 12/16/21 12/16/21 20:32 20:32 20:32 WBC 7.3 RBC 3.64 L Hgb 11.1 L Hct 33.5 L MCV 92.0 MCH 30.5 MCHC 33.1 RDW 12.0 Plt Count 186 MPV 9.9 Neut # (Auto) 4.9 Lymph # (Auto) 1.8 [place] # (Auto) 0.5 Eos # (Auto) 0.1 Baso # (Auto) 0.0 Absolute Nucleated RBC 0.00 Nucleated RBC % 0.0 Sodium 136 Potassium 2.6 L Chloride 98 L Carbon Dioxide 31 Anion Gap 7.0 BUN 12 Creatinine 0.8 Estimated GFR (MDRD) 79 L Glucose 153 H Calcium 9.2 Total Bilirubin 0.5 AST 23 ALT 28 Alkaline Phosphatase 50 B-Natriuretic Peptide 17 Total Protein 6.9 Albumin 3.9 Globulin 3.0 Albumin/Globulin Ratio 1.3 Lipase 34 PD MEDICAL DECISION MAKING - ED course Complexity details: reviewed old records, reviewed results, re-evaluated patient, considered differential, d/w patient ED course: CBC, abdominal panel, and BNP are only remarkable for hypokalemia (2.6). She is given PO potassium and extra dose of HCTZ in ED, and presciptions for both medications electronically submitted to her pharmacy of choice. Initially the plan I advised was to double the HCTZ dose but in light of the hypokalemia, I advised her to stay on the same dose of HCTZ until she can be seen in follow up and have her potassium level rechecked. I am prescribing a short course of short-acting opioid pain medication for this patient. 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 I have discussed that the opioids are for short term therapy only, and will not be refilled from the ED Departure - Departure Disposition: 01 Home, Self Care Clinical Impression: Hypokalemia, Peripheral edema Condition: Good Instructions: ED Edema Legs Bilateral, ED Potassium Deficiency Prescriptions: hydroCHLOROthiazide [Hydrodiuril] 25 mg PO DAILY #20 tablet Potassium Chloride [K-Dur] 20 meq PO BIDWM #20 tablet HYDROcod/ACETAM 5/325 [[place] 5/325] 1 - 2 tablet PO Q6H PRN #14 tablet PRN Reason: Pain Print Language: Croatian Comments: I recommend you stay on the same dose of the hydrochlorothiazide (diuretic , "water pill"). Your potassium level was quite low today, and the hydrochlorothiazide is the most likely cause of this. I have prescribed potassium for you, but the dosing of the medication should not be changed until your potassium is rechecked in the next few days or weeks. I have also prescribed more of the hydrocodone (pain medication) and more of the hydrochlorothiazide. These prescriptions have been electronically submitted to [facility] pharmacy in [place]. Although tonight's blood tests are reassuring other than the low potassium, you might need other tests to determine what is causing your symptoms. Follow up with your doctor to discuss further testing and be sure to mention the low potassium level (2.6) I am prescribing a short course of narcotic pain medication for you. These are potentially dangerous and addictive medications that should be used carefully. These medications may constipate you. Take an pqwl-dvz-pqyjrbx stool softener (docusate) twice daily with plenty of water while taking these medications. If you go 24 hours without a bowel movement, take vzjz-cwv-ttjchiq miralax, per package instructions. Do not drink or drive while taking these medications. If you received narcotic or sedating medications while in the emergency department, do not drive for 24 hours. Store this medication in a safe, secure place and out of reach of children. It is a violation of federal law to give or sell this medication to another person or to use in a manner other than prescribed. The ED will not refill narcotic prescriptions, including prescriptions lost or stolen. To dispose of unwanted medications: 1. [facility] at [address] in [place] has a medication drop box. They accept prescription medications (in pill form) Toni through Sunday 9:00 a.m. to 5:00 p.m. 2. The [facility] [employer] accepts prescription medications (in pill form only) for disposal year round. Call for more info rmation. 3. Contact the [facility] for the next [facility] sponsored prescription drug collection event. , [phone], or [phone]; Discharge Date/Time: 12/16/21 22:17
[2021-12-16 20:53] LABS: ALBUMIN 3.9 g/dL (3.2-5.5); ALBUMIN/GLOBULIN RATIO 1.3 (1.0-2.2); BILIRUBIN,TOTAL 0.5 mg/dL (0.2-1.0); CALCIUM 9.2 mg/dL (8.5-10.3); CREATININE 0.8 mg/dL (0.4-1.0); POTASSIUM 2.6 mmol/L (3.5-5.0); TOTAL PROTEIN 6.9 g/dL (6.7-8.2)
[2021-12-16] MEDS ORDERED: HYDROcod/ACETAM 5/325 MG TABLET PO STA (21:22)
[2021-12-16] MEDS ORDERED: POTASSIUM CHLORIDE 20 MEQ TABLET PO STA (21:25)
[2021-12-16] MEDS ORDERED: hydroCHLOROthiazide 25 MG TABLET PO STA (21:28)
[2021-12-16 22:22] VITALS: BP 101/62
== END 2021-12-16 22:17 | disposition home or self-care (01) ==
LOC: ED 19:54
DX: E87.6 Hypokalemia (principal); R60.9 Edema, unspecified
CPT/HCPCS: 36415; 80053; 83690; 83880; 85025; 99283; A9270

== ENCOUNTER 2021-12-20 12:01 | Emergency (ER) | payer MEDICAID ==
[2021-12-20] MEDS ORDERED: KETOROLAC 15 MG/ML VIAL IVP STA (12:47)
[2021-12-20] MEDS ORDERED: SODIUM CHLORIDE 0.9% 1,000 ML IV STA (12:47)
[2021-12-20] MEDS ORDERED: DEXAMETHASONE 10 MG/ML VIAL IVP STA (12:47)
--- NOTE | 2021-12-20 12:50 | ED Physician Documentation ---
History of Present Illness - Stated complaint Stated Complaint: HIGH FEVER - Chief complaint Chief Complaint: Fever - History obtained from History obtained from: Patient - Additonal information Additional information: 41-year-old woman who is healthy other than having pedal edema for which she takes hydrochlorothiazide presents for febrile illness starting yesterday. History was taken with the aid of the [employer] official court interpreter tablet. She developed a fever up to 102 yesterday. She was feeling achy all over especially in the throat and left ear but also prominent headache and some upper abdominal pain. She went to an emergency department in [place] where she was visiting and had diagnostic testing done. Per her discharge instructions that she has with her she had a CBC, lactate, electrolyte panel, COVID test, flu test, UA, Upreg with negative results. She was sent home with a prescription for Zofran. She still feels quite sick with the above symptoms. No sick contacts. Review of Systems Constitutional: reports: Fever, Chills, Myalgias, Fatigue, Sweats Ears: reports: Ear pain Nose: denies: Rhinorrhea / runny nose Throat: reports: Sore throat Respiratory: reports: Cough GI: reports: Abdominal Pain, Nausea. 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 : None HEENT: None Psych: Depression Musculoskeletal: None - Past Surgical History Past Surgical History: Yes Ortho: Carpal Tunnel surgery - Present Medications Home Medications: Ambulatory Orders Medication Instructions Recorded Confirmed Meloxicam [Mobic] 7.5 mg PO BID 10 Days #20 tablet 12/08/21 12/20/21 HYDROcod/ACETAM 5/325 [[place] 5/325] 1 - 2 tablet PO Q6H PRN #14 tablet 12/16/21 12/20/21 Potassium Chloride [K-Dur] 20 meq PO BIDWM #20 tablet 12/16/21 12/20/21 hydroCHLOROthiazide [Hydrodiuril] 25 mg PO DAILY #20 tablet 12/16/21 12/20/21 HYDROcod/ACETAM 5/325 [[place] 5/325] 1 - 2 tab PO Q6H PRN #15 tablet 12/20/21 Penicillin V Potassium 500 mg PO Q6HR #40 tablet 12/20/21 predniSONE [Deltasone] 60 mg PO DAILY 5 Days #15 tablet 12/20/21 - Allergies Allergies/Adverse Reactions: Allergies Allergy/AdvReac Type Severity Reaction Status Date / Time No Known Drug Allergies Allergy Verified 12/20/21 12:18 - Social History Does the pt smoke?: No Smoking Status: Never smoker Does the pt drink ETOH?: No Does the pt have substance abuse?: No - Immunizations Immunizations are current?: Yes Immunizations: TDAP >10years/unknown - POLST Patient has POLST: No PD ED PE NORMAL - Vitals Vital signs reviewed: Yes - General General: Alert and oriented X 3, No acute distress - HEENT HEENT: Other (TMs are normal. Supple neck, she has halitosis with exudative tonsillitis and mild trismus.) - Neck Neck: Supple, no meningeal sign, No bony TTP - Cardiac Cardiac: RRR, No murmur - Respiratory Respiratory: No respiratory distress, Clear bilaterally - Abdomen Abdomen: Normal bowel sounds, Soft, Other (Mild upper abdominal tenderness without surgical signs) - Back Back: No CVA TTP, No spinal TTP - Derm Derm: Normal color, Warm and dry, No rash - Extremities Extremities: Other (She complains of pedal edema but does not have any pedal edema.) - Neuro Neuro: Alert and oriented X 3, Normal speech Results - Vitals Vitals: Vital Signs - 24 hr 12/20/21 12/20/21 12:18 12:24 Temperature 38.9 C H 38.9 C H Heart Rate 111 H 111 H Respiratory 18 18 Rate Blood Pressure 103/68 103/68 O2 Saturation 99 99 Oxygen O2 Source Room air - Labs Labs: Laboratory Tests 12/20/21 12/20/21 12/20/21 13:00 13:00 13:13 WBC 9.5 RBC 3.79 L Hgb 11.5 L Hct 34.9 L MCV 92.1 MCH 30.3 MCHC 33.0 RDW 12.5 Plt Count 172 MPV 10.1 Neut # (Auto) 7.9 H Lymph # (Auto) 0.8 L [place] # (Auto) 0.7 Eos # (Auto) 0.0 Baso # (Auto) 0.0 Absolute Nucleated RBC 0.00 Nucleated RBC % 0.0 Sodium 134 L Potassium 3.1 L Chloride 101 Carbon Dioxide 24 Anion Gap 9.0 BUN 8 Creatinine 0.8 Estimated GFR (MDRD) 79 L Glucose 113 H Calcium 8.6 Total Bilirubin 0.4 AST 17 ALT 23 Alkaline Phosphatase 45 Total Protein 6.9 Albumin 3.8 Globulin 3.1 Albumin/Globulin Ratio 1.2 Group A Strep Rapid POSITIVE H PD MEDICAL DECISION MAKING - ED course ED course: 41-year-old woman with a febrile illness. Does not appear toxic. Exam most consistent with strep throat proven with strep testing here and administered ketorolac, dexamethasone, and Rocephin in the department with improvement in symptoms. Departure - Departure Disposition: Home, Self Care Clinical Impression: Strep throat Condition: Good Instructions: ED Strep Pharyngitis Conf Prescriptions: Penicillin V Potassium 500 mg PO Q6HR #40 tablet predniSONE [Deltasone] 60 mg PO DAILY 5 Days #15 tablet HYDROcod/ACETAM 5/325 [[place] 5/325] 1 - 2 tab PO Q6H PRN #15 tablet PRN Reason: Pain Print Language: Swazi Comments: Envi shawanda recetas electrnicamente a [facility] [place]. Hoy usted fue positivo para la faringitis estreptoccica que puede causar nayely corporales severos y dolor de garganta. El anlisis de екатерина posterior derecho es bsicamente poco notable. Regrese para sntomas nuevos o peores o si no mejore en los prximos 3 a 4 bradshaw.
[2021-12-20 13:12] LABS: BASOPHILS % (AUTO) 0.3 %; HCT - HEMATOCRIT 34.9 % (37.0-47.0); HGB - HEMOGLOBIN 11.5 g/dL (12.0-16.0); LYMPHOCYTES # (AUTO) 0.8 10^3/uL (1.5-3.5); LYMPHOCYTES % (AUTO) 8.2 %; MEAN CORPUSCULAR HEMOGLOBIN 30.3 pg (27.0-31.0); MEAN CORPUSCULAR VOLUME 92.1 fL (81.0-99.0); MEAN PLATELET VOLUME 10.1 fL (7.9-10.8); MONOCYTES # (AUTO) 0.7 10^3/uL (0.0-1.0); MONOCYTES % (AUTO) 7.5 %; NEUTROPHILS # (AUTO) 7.9 10^3/uL (1.5-6.6); NEUTROPHILS % (AUTO) 83.4 %; PLT - PLATELET COUNT 172 10^3/uL (130-450); RED BLOOD COUNT 3.79 10^6/uL (4.20-5.40); RED CELL DISTRIBUTION WIDTH 12.5 % (12.0-15.0); WHITE BLOOD COUNT 9.5 x10^3/uL (4.8-10.8)
[2021-12-20 13:21] LABS: RAPID STREP SCREEN POSITIVE (Negative)
[2021-12-20 13:21] LABS: ALBUMIN 3.8 g/dL (3.2-5.5); ALBUMIN/GLOBULIN RATIO 1.2 (1.0-2.2); BILIRUBIN,TOTAL 0.4 mg/dL (0.2-1.0); CALCIUM 8.6 mg/dL (8.5-10.3); CREATININE 0.8 mg/dL (0.4-1.0); POTASSIUM 3.1 mmol/L (3.5-5.0); TOTAL PROTEIN 6.9 g/dL (6.7-8.2)
[2021-12-20] MEDS ORDERED: cefTRIAXone 1 GM in SODIUM CHLORIDE 0.9% MINIBAG 100 ML IV STA (13:39)
[2021-12-20] MEDS ORDERED: HYDROmorphone 1 MG/ML CARPUJECT IVP STA (13:46)
[2021-12-20] MEDS ORDERED: cefTRIAXone 1 GM VIAL ONE ×2 (13:56→13:57)
[2021-12-20 15:09] VITALS: BP 85/50
== END 2021-12-20 13:50 | disposition home or self-care (01) ==
LOC: ED 12:01
DX: J02.0 Streptococcal pharyngitis (principal)
CPT/HCPCS: 36415; 80053; 85025; 87430; 96374; 96375; 99283; J1170

== ENCOUNTER 2021-12-22 18:29 | Emergency (ER) | payer MEDICAID ==
--- NOTE | 2021-12-22 19:11 | ED Physician Documentation ---
History of Present Illness - Stated complaint Stated Complaint: SOA,SORE THROAT - Chief complaint Chief Complaint: Heent - History obtained from History obtained from: Patient - Additonal information Additional information: History taken with the tablet american sign language interpreter. She is 41 otherwise healthy. She initially got sick 3 days ago and went to another facility where she had blood work COVID and flu test and urine done with negative results. Subsequently saw us 2 days ago with fever, sore throat and ear pain and diagnosed with strep throat. Started on antibiotics. States she is not better. Still has sore throat and ear pain but complains more prominently of shortness of breath without cough. No history of asthma or other pulmonary disease. Declines increase in therapeutics but is worried about her breathing. She has had no fevers since the antibiotics were started. Review of Systems Constitutional: denies: Fever, Chills Ears: reports: Ear pain Nose: denies: Rhinorrhea / runny nose Throat: reports: Sore throat Respiratory: reports: Dyspnea. 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 : None HEENT: None Psych: Depression Musculoskeletal: None - Past Surgical History Past Surgical History: Yes Ortho: Carpal Tunnel surgery - Present Medications Home Medications: Ambulatory Orders Medication Instructions Recorded Confirmed Meloxicam [Mobic] 7.5 mg PO BID 10 Days #20 tablet 12/08/21 12/20/21 HYDROcod/ACETAM 5/325 [[place] 5/325] 1 - 2 tablet PO Q6H PRN #14 tablet 12/16/21 12/20/21 Potassium Chloride [K-Dur] 20 meq PO BIDWM #20 tablet 12/16/21 12/20/21 hydroCHLOROthiazide [Hydrodiuril] 25 mg PO DAILY #20 tablet 12/16/21 12/20/21 HYDROcod/ACETAM 5/325 [[place] 5/325] 1 - 2 tab PO Q6H PRN #15 tablet 12/20/21 Penicillin V Potassium 500 mg PO Q6HR #40 tablet 12/20/21 predniSONE [Deltasone] 60 mg PO DAILY 5 Days #15 tablet 12/20/21 Azithromycin [Zithromax] 1 tab PO DAILY #4 tab 12/22/21 - Allergies Allergies/Adverse Reactions: Allergies Allergy/AdvReac Type Severity Reaction Status Date / Time No Known Drug Allergies Allergy Verified 12/22/21 18:45 - Social History Does the pt smoke?: No Smoking Status: Never smoker Does the pt drink ETOH?: No Does the pt have substance abuse?: No - Immunizations Immunizations are current?: Yes Immunizations: TDAP >10years/unknown - POLST Patient has POLST: No PD ED PE NORMAL - Vitals Vital signs reviewed: Yes - General General: Alert and oriented X 3, No acute distress - HEENT HEENT: Ears normal, Other (Throat looking much better than it did the other day, TMs remain normal.) - Neck Neck: Supple, no meningeal sign, No bony TTP, No adenopathy - Cardiac Cardiac: RRR, No murmur - Respiratory Respiratory: No respiratory distress, Clear bilaterally - Abdomen Abdomen: Non tender - Derm Derm: Normal color, Warm and dry - Neuro Neuro: Alert and oriented X 3, Normal speech Results - Vitals Vitals: Vital Signs - 24 hr 12/22/21 12/22/21 18:36 19:51 Temperature 36.4 C L Heart Rate 65 68 Respiratory 16 14 Rate Blood Pressure 110/84 H 128/88 H O2 Saturation 98 99 Oxygen O2 Source Room air PD MEDICAL DECISION MAKING - ED course ED course: 41-year-old woman was seen the other day and treated for strep positivity, now with shortness of breath but no cough. Very reassuring vital signs and normal exam. Chest x-ray showing possible left lower lobe pneumonia so will add azithromycin to the penicillin she is already on. Departure - Departure Disposition: 01 Home, Self Care Clinical Impression: Strep throat, Pneumonia Condition: Good Instructions: Pneumonia Dc Prescriptions: Azithromycin [Zithromax] 1 tab PO DAILY #4 tab Print Language: Kiswahili Comments: Shetty radiografa muestra neumona leve del lbulo inferior home. Contine con la penicilina agregando un lambert antibitico para ayudar con esto. Todava debera comenzar a sentirse mejor alrededor del sbado ms o menos. Regrese si empeora. Discharge Date/Time: 12/22/21 19:53
--- NOTE | 2021-12-22 19:38 | XRAY Report ---
PROCEDURE: Chest 2 View X-Ray INDICATIONS: dyspnea TECHNIQUE: 2 views of the chest. COMPARISON: None. FINDINGS: Surgical changes and devices: None. Lungs and pleura: There are confluent left lower lobe retrocardiac opacities. No pleural effusions o r pneumothorax. Mediastinum: Mediastinal contours are normal. Heart size is normal. Bones and chest wall: No suspicious bony abnormalities. Soft tissues appear unremarkable. IMPRESSION: 1. Confluent left lower lobe retrocardiac opacities are suggestive of consolidation and pneumonia but may also reflect atelectasis. Reviewed by: Manny Kuhn MD on 12/22/2021 7:36 PM PDT Approved by: Manny Kuhn MD on 12/22/2021 7:36 PM PDT Station ID: [id number]
[2021-12-22] MEDS ORDERED: AZITHROMYCIN 250 MG TABLET PO STA (19:39)
[2021-12-22 19:51] VITALS: BP 128/88
== END 2021-12-22 19:53 | disposition home or self-care (01) ==
LOC: ED 18:29
DX: J18.9 Pneumonia, unspecified organism (principal); J02.0 Streptococcal pharyngitis
CPT/HCPCS: 71046; 99283; 99284; A9270

== ENCOUNTER 2022-03-02 20:58 | Emergency (ER) | payer MEDICAID ==
[2022-03-02 22:58] LABS: BILIRUBIN,URINE NEGATIVE (NEGATIVE); GLUCOSE, URINE (UA) NEGATIVE (NEGATIVE); KETONES,URINE (UA) NEGATIVE (NEGATIVE); LEUKOCYTE ESTERASE, URINE SMALL (NEGATIVE); NITRITE,URINE NEGATIVE (NEGATIVE); OCCULT BLOOD,URINE NEGATIVE (NEGATIVE); PROTEIN,URINE NEGATIVE (NEGATIVE); UROBILINOGEN,URINE 0.2 (NORMAL) E.U./dL (NORMAL)
[2022-03-02 23:01] LABS: CLARITY,URINE CLEAR (CLEAR); HCG UR QUAL NEGATIVE
[2022-03-02 23:04] LABS: BACTERIA,URINE Few /HPF (None Seen); RBC,URINE 0-5 /HPF (0-5); SQUAMOUS EPITHELIAL CELL,UR MOD Squamous (<= Few); WBC,URINE 0-3 /HPF (0-5)
--- NOTE | 2022-03-02 23:17 | ED Physician Documentation ---
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 She recently finished with her period. She does use tampons but denies concerns for retained foreign body. She denies concerns for . She denies history of vaginal infections and denies concerns for sexually transmitted infections. She reports mild discomfort with urination but denies blood in her urine, urgency or frequency. She denies fevers, abdominal pain, flank pain. She has been using an hhke-vzo-ryttmll vaginal wash which she is unsure of the name of. Review of Systems Constitutional: denies: Fever Cardiac: denies: Chest pain / pressure GI: denies: Abdominal Pain : reports: Dysuria, Discharge. 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 : None HEENT: None Psych: Depression Musculoskeletal: None - Past Surgical History Past Surgical History: Yes Ortho: Carpal Tunnel surgery - Present Medications Home Medications: Ambulatory Orders Medication Instructions Recorded Confirmed Meloxicam [Mobic] 7.5 mg PO BID 10 Days #20 tablet 12/08/21 12/20/21 HYDROcod/ACETAM 5/325 [[place] 5/325] 1 - 2 tablet PO Q6H PRN #14 tablet 12/16/21 12/20/21 Potassium Chloride [K-Dur] 20 meq PO BIDWM #20 tablet 12/16/21 12/20/21 hydroCHLOROthiazide [Hydrodiuril] 25 mg PO DAILY #20 tablet 12/16/21 12/20/21 HYDROcod/ACETAM 5/325 [[place] 5/325] 1 - 2 tab PO Q6H PRN #15 tablet 12/20/21 Penicillin V Potassium 500 mg PO Q6HR #40 tablet 12/20/21 predniSONE [Deltasone] 60 mg PO DAILY 5 Days #15 tablet 12/20/21 Azithromycin [Zithromax] 1 tab PO DAILY #4 tab 12/22/21 metroNIDAZOLE [Flagyl] 500 mg PO BID 7 Days #14 tablet 03/03/22 - Allergies Allergies/Adverse Reactions: Allergies Allergy/AdvReac Type Severity Reaction Status Date / Time No Known Drug Allergies Allergy Verified 03/02/22 21:06 - Social History Does the pt smoke?: No Smoking Status: Never smoker Does the pt drink ETOH?: No Does the pt have substance abuse?: No - Immunizations Immunizations are current?: Yes Immunizations: TDAP >10years/unknown - POLST Patient has POLST: No PD ED PE NORMAL - General General: Alert and oriented X 3, No acute distress, Well developed/nourished - HEENT HEENT: Atraumatic - Cardiac Cardiac: RRR - Respiratory Respiratory: No respiratory distress - Abdomen Abdomen: Normal bowel sounds, Soft, Non tender, Non distended - Female Female : 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 (Jessica, felicia), Other (Normal external exam with no rash or lesions, moderate amount of white vaginal discharge, no CMT or adnexal tenderness, no masses or foreign body) - Back Back: No CVA TTP - Derm Derm: Warm and dry Results - Vitals Vitals: Vital Signs - 24 hr 03/02/22 03/02/22 21:04 23:39 Temperature 36.6 C Heart Rate 76 86 Respiratory 16 18 Rate Blood Pressure 112/75 122/87 H O2 Saturation 99 100 Oxygen O2 Source Room air - Labs Labs: Laboratory Tests 03/02/22 03/02/22 21:59 22:50 Urine Color YELLOW Urine Clarity CLEAR Urine pH 7.0 Ur Specific [place] 1.010 Urine Protein NEGATIVE Urine Glucose (UA) NEGATIVE Urine Ketones NEGATIVE Urine Occult Blood NEGATIVE Urine Nitrite NEGATIVE Urine Bilirubin NEGATIVE Urine Urobilinogen 0.2 (NORMAL) Ur Leukocyte Esterase SMALL H Urine RBC 0-5 Urine WBC 0-3 Ur Squamous Epith Cells MOD Squamous H Urine Bacteria Few Ur Microscopic Review INDICATED Urine Culture Comments NOT INDICATED Urine HCG, Qual NEGATIVE C. glabrata (PCR) NEGATIVE C. krusei (PCR) NEGATIVE Liliana species DNA NEGATIVE T. vaginalis (PCR) NEGATIVE Bact Vaginosis (PCR) POSITIVE A PD MEDICAL DECISION MAKING - ED course ED course: Patient evaluated for vaginal irritation and discharge.No signs of PID or urine is negative for infection and she is not . No pelvic tenderness or signs of PID on exam. Swabs were sent.Vaginosis swab was positive for BV. I have sent a prescription for Flagyl to [facility] and have discussed with overnight charge nurse (Vandana) that patient needs to be contacted in the morning To be notified of her abnormal lab result and prescription that is waiting for her. Departure - Departure Disposition: 01 Home, Self Care Clinical Impression: Bacterial vaginosis Vaginitis Qualifiers: Chronicity: acute Qualified Code(s): N76.0 - Acute vaginitis Condition: Stable Instructions: Vaginitis Prevent, ED Vaginosis Bacterial Prescriptions: metroNIDAZOLE [Flagyl] 500 mg PO BID 7 Days #14 tablet Comments: You were evaluated for irritation to the vaginal area. Not all of your test results are back this evening. They should come back tomorrow or the following day. If there are any abnormal findings we will call you to review them and send any necessary prescriptions to your pharmacy of choice. Discharge Date/Time: 03/02/22 23:40
[2022-03-02 23:39] VITALS: BP 122/87
[2022-03-03 00:14] LABS: BACTERIAL VAGINOSIS DNA POSITIVE (NEGATIVE); CANDIDA GLABRATA DNA NEGATIVE (NEGATIVE); CANDIDA GROUP DNA NEGATIVE (NEGATIVE); CANDIDA KRUSEI DNA NEGATIVE (NEGATIVE); TRICHOMONAS VAGINALIS DNA NEGATIVE (NEGATIVE)
[2022-03-03 02:18] LABS: CHLAMYDIA TRACHOMATIS DNA NEGATIVE (NEGATIVE); NEISSERIA GONORRHOEAE DNA NEGATIVE (NEGATIVE)
== END 2022-03-02 23:40 | disposition home or self-care (01) ==
LOC: ED 20:58
DX: N76.0 Acute vaginitis (principal)
CPT/HCPCS: 81001; 81003; 81025; 81514; 87086; 87210; 87491; 87591; 87661; 99283